=== PATIENT | female | born 1980 | race Hispanic/Latino ===

== ENCOUNTER 2018-02-13 21:45 | Emergency (ER) | payer OTHER ==
[2018-02-13 21:58] VITALS: BP 124/83; O2SAT 100
[2018-02-13] MEDS ORDERED: Iohexol 240 (50 ml) PO STA (22:26)
[2018-02-13] MEDS ORDERED: Sodium Chloride 0.9% 1,000 ML IV STA (22:29)
[2018-02-13 23:13] LABS: BASO # 0.1 K/uL (0.0-0.2); BASO % 0.5 % (0.0-2.0); EOS # 0.7 K/uL (0.0-0.7); EOS % 7.1 % (0.0-4.0); HEMOGLOBIN 10.3 g/dL (12.0-16.0); LYMPH # 1.2 K/uL (1.0-4.3); LYMPH % 12.7 % (20.0-40.0); MEAN CELL VOLUME 84.9 fl (81.0-99.0); MEAN CORPUSCULAR HEMOGLOBIN 29.4 pg (27.0-31.0); MEAN CORPUSCULAR HGB CONC 34.6 g/dL (33.0-37.0); MEAN PLATELET VOLUME 7.1 fl (7.2-11.7); MONO % 10.2 % (0.0-10.0); NEUT # 6.7 K/uL (1.8-7.0); NEUT % 69.5 % (50.0-75.0); RBC 3.51 Mil/uL (3.80-5.20); RED CELL DISTRIBUTION WIDTH 12.9 % (11.5-14.5); WHITE BLOOD COUNT 9.7 K/uL (4.8-10.8)
[2018-02-13] MEDS ORDERED: Iohexol 240 (50 ml) ONE (23:13)
[2018-02-13 23:21] LABS: ALB/GLOB RATIO 1.1 (1.0-2.1); ALBUMIN 3.4 g/dL (3.5-5.0); ALT/SGPT 25 U/L (9-52); AST/SGOT 23 U/L (14-36); BLOOD UREA NITROGEN 3 mg/dl (7-17); CALCIUM 8.1 mg/dL (8.4-10.2); GFR AFRICAN-AMERICAN > 60; GFR NON-AFRICAN AMERICAN > 60; LIPASE 24 U/L (23-300)
[2018-02-13 23:39] LABS: INR 1.4 (0.9-1.2)
[2018-02-13] MEDS ORDERED: Potassium Chloride 20 mEq ER Tab PO STA (23:42)
[2018-02-13] MEDS ORDERED: Potassium Chloride 20 mEq ER Tab PO ONE ×2 (23:54→23:57)
[2018-02-14] MEDS ORDERED: Potassium Chloride 20 mEq ER Tab PO ONE (00:01)
--- NOTE | 2018-02-14 00:04 | ED PDOC ---
HPI: General Adult Time Seen by Provider: 02/13/18 22:02 Chief Complaint (Nursing): Fever Chief Complaint (Provider): Diarrhea History Per: Patient History/Exam Limitations: no limitations Onset/Duration Of Symptoms: Days (x30) Current Symptoms Are (Timing): Still Present Additional History Per: Patient Additional Complaint(s): 37 y/o female presents with a PMHx of chronic celiac disease to the ED complaining of diarrhea, onset one month ago. Patient states of 4-5 episodes a day over the last week associated with lightheadedness. Patient also complains of fever and blister on lip, onset today. Patient additionally reports of blurry vision the last couple weeks. Patient states she went to see an graduate rn on Thursday and was diagnosed with bilateral uveitis and advised for further workup of systemic inflammatory disorder . Patient was seen by Dr. Salcedo on Thursday and prescribed Bentyl with no relief. PMD: Franky Florian Past Medical History Reviewed: Historical Data, Nursing Documentation, Vital Signs Vital Signs: Last Vital Signs Temp 98.0 F 02/14/18 04:32 Pulse 116 H 02/14/18 04:32 Resp 18 02/14/18 04:32 BP 124/83 02/13/18 21:54 Pulse Ox 100 02/14/18 04:32 - Medical History PMH: No Chronic Diseases Other PMH: Celiac Disease - Surgical History Surgical History: No Surg Hx - Family History Family History: States: No Known Family Hx - Social History Current smoker - smoking cessation education provided: No - Home Medications Home Medications: Ambulatory Orders Medication Instructions Recorded Ciprofloxacin [Cipro] 500 mg PO BID 7 Days tab 02/14/18 metroNIDAZOLE [Flagyl] 500 mg PO BID 7 Days tab 02/14/18 - Allergies Allergies/Adverse Reactions: Allergies Allergy/AdvReac Type Severity Reaction Status Date / Time No Known Allergies Allergy Verified 02/13/18 21:53 Review of Systems ROS Statement: Except As Marked, All Systems Reviewed And Found Negative (as per HPI) Constitutional: Positive for: Fever Eyes: Positive for: Vision Change (blurry) ENT: Positive for: Other (blister on lip) Gastrointestinal: Positive for: Diarrhea Neurological: Positive for: Other (lightheadedness) Physical Exam - Reviewed Nursing Documentation Reviewed: Yes Vital Signs Reviewed: Yes - Physical Exam Appears: Positive for: Non-toxic, No Acute Distress (tired appearing ) Head Exam: Positive for: ATRAUMATIC, NORMOCEPHALIC Skin: Positive for: Warm, Dry Eye Exam: Positive for: EOMI, PERRL ENT: Positive for: Pharynx Is (clear), Other (tachy mucous membranes) Neck: Positive for: Painless ROM, Supple Cardiovascular/Chest: Positive for: Regular Rate, Rhythm. Negative for: Murmur Respiratory: Positive for: Normal Breath Sounds. Negative for: Wheezing Gastrointestinal/Abdominal: Positive for: Normal Exam, Soft. Negative for: Tenderness, Mass, Guarding, Rebound Back: Positive for: Normal Inspection. Negative for: L CVA Tenderness, R CVA Tenderness Extremity: Positive for: Normal ROM. Negative for: Deformity Lymphatic: Negative for: Adenopathy Neurologic/Psych: Positive for: Alert. Negative for: Motor/Sensory Deficits - Laboratory Results Result Diagrams: 02/13/18 22:59 02/13/18 22:59 - ECG ECG Rhythm: Positive for: Normal QRS, Normal ST Segment, Sinus Rhythm Rate: 65 O2 Sat by Pulse Oximetry: 100 (RA) Pulse Ox Interpretation: Normal Medical Decision Making Medical Decision Making: Time: 2258 Impression: Diarrhea, fever, and possible inflammatory bowel disease Differentials include but not limited to colitis, Crohn's Disease, dehydration, electrolyte abnormality, and sepsis. Plan: -- Type and Screen -- CT Abd/Pelvis PO & IV Contrast -- CMP -- Lact Acid, Plasma -- Lipase -- Magnesium -- Phosphorus -- ED Urine -- ED Urine Dipstick -- CBC with differentials -- Erythrocyte sedimentation rate -- PTT -- Prothrombin Time -- Sodium Chloride IV 1000 mls/hr -- Iohexol 50 ml PO -- Zofran Inj 4 mg IVP -- Blood Culture -- IV Insertion Time: 2357 Plan: -- Urinalysis -- C Diff Toxin A B -- Urine C & S -- Stool Culture -- OVA and PARASITE -- Potassium Chloride 40 meq PO -- EKG -- Labs demonstrate dehydration, hypocalcemia, and mild anemia. Time: 0000 -- Patient endorsed to Dr. Hendrickson, pending CT scan. Scribe Attestation: Documented by Humberto Jerez acting as a scribe for Dr. Yolie Prado. Provider Scribe Attestation: All medical record entries made by the Scribe were at my direction and personally dictated by me. I have reviewed the chart and agree that the record accurately reflects my personal performance of the history, physical exam, medical decision making, and the department course for this patient. I have also personally directed, reviewed, and agree with the discharge instructions and disposition. Disposition - Clinical Impression Clinical Impression: Colitis - Disposition Disposition: Transfer of Care Disposition Time: 00:30 Condition: STABLE Prescriptions: Ciprofloxacin [Cipro] 500 mg PO BID 7 Days tab metroNIDAZOLE [Flagyl] 500 mg PO BID 7 Days tab
[2018-02-14 00:09] LABS: URINE BACTERIA RARE (<OCC); URINE BILIRUBIN NEGATIVE (NEGATIVE); URINE BLOOD MODERATE (NEGATIVE); URINE CLARITY CLEAR (Clear); URINE COLOR COLORLESS (YELLOW); URINE GLUCOSE (UA) NEG (Normal); URINE LEUKOCYTE ESTERASE NEG Leu/uL (Negative); URINE PROTEIN NEGATIVE (NEGATIVE); URINE UROBILINOGEN 0.2-1.0 mg/dL (0.2-1.0)
[2018-02-14 00:10] VITALS: TEMP 98
[2018-02-14] MEDS ORDERED: Sodium Chloride 0.9% 50 ML IV ONE (01:46)
[2018-02-14] MEDS ORDERED: Iohexol 300 100 ML IJ ONE (01:46)
--- NOTE | 2018-02-14 03:37 | ED PDOC ---
- Laboratory Results Result Diagrams: 02/13/18 22:59 02/13/18 22:59 - ECG O2 Sat by Pulse Oximetry: 100 (RA) Pulse Ox Interpretation: Normal Medical Decision Making Medical Decision Making: Time: 0000 -- Patient endorsed to me by Dr. Prado, pending CT scan. Time: 326 CT ABD/PELVIS RESULTS FINDINGS: Lower thorax: No acute findings. ABDOMEN: Liver: A couple small nonspecific hypodense liver lesion spell possible small cysts or hemangiomas Gallbladder and bile ducts: Normal. No calcified stones. No ductal dilation. Pancreas: Normal. No ductal dilation. Spleen: Normal. No splenomegaly. Adrenals: Normal. No mass. Kidneys and ureters: Normal. No hydronephrosis. Stomach and bowel: Moderate colonic wall thickening, predominantly in the transverse colon. No obstruction. Appendix: No evidence of appendicitis. PELVIS: Bladder: Unremarkable as visualized. Reproductive: Unremarkable as visualized. ABDOMEN and PELVIS: Intraperitoneal space: Normal. No free air. No significant fluid collection. Bones/joints: No acute fracture. No dislocation. Soft tissues: Unremarkable. Vasculature: Normal. No abdominal aortic aneurysm. Lymph nodes: Normal. No enlarged lymph nodes. IMPRESSION: Moderate colonic wall thickening, predominantly in the transverse colon. Consistent with infectious versus inflammatory colitis Thank you for allowing us to participate in the care of your patient. Dictated and Authenticated by: Moshe King MD 02/14/2018 3:27 AM Eastern Time ([place] & [place]) Patient re-evaluated at bedside, states no abdominal pain at this time, states she feels well. Gave results of CT to patient, advised her to see Dr. Salcedo on Thursday for plans to have colonoscopy. Patient tolerating PO, well appearing, normal vitals. Will discharge home. Scribe Attestation: Documented by Humberto Jerez acting as a scribe for Dr. Jam Hendrickson MD. Provider Scribe Attestation: All medical record entries made by the Scribe were at my direction and personally dictated by me. I have reviewed the chart and agree that the record accurately reflects my personal performance of the history, physical exam, medical decision making, and the department course for this patient. I have also personally directed, reviewed, and agree with the discharge instructions and disposition. Disposition - Clinical Impression Clinical Impression: Colitis - POA Present On Arrival: None - Disposition Referrals: Moshe Salcedo MD, PhD [Staff Provider] - Disposition: Routine/Home Disposition Time: 04:00 Condition: IMPROVED Prescriptions: Ciprofloxacin [Cipro] 500 mg PO BID 7 Days tab metroNIDAZOLE [Flagyl] 500 mg PO BID 7 Days tab Instructions: Inflammatory Bowel Disease (DC) Forms: [facility] (Malaysian)
[2018-02-14 04:32] VITALS: RESP 18
--- NOTE | 2018-02-14 13:51 | CARD ---
APPROVED REPORT Date of service: 02/14/2018 EKG Measurement Heart [id number] MD [id number] <Conclusion> Normal sinus rhythm Normal ECG
--- NOTE | 2018-02-14 14:20 | CT ---
Date of service: 02/14/2018 PROCEDURE: CT Abdomen and Pelvis with contrast HISTORY: diarrhea weight loss fever COMPARISON: None. TECHNIQUE: Contrast dose: 90 mL Omnipaque 300 Radiation dose: Total exam DLP = 238.27 mGy-cm. This CT exam was performed using one or more of the following dose reduction techniques: Automated exposure control, adjustment of the mA and/or kV according to patient size, and/or use of iterative reconstruction technique. FINDINGS: LOWER THORAX: No infiltrate. 5 mm pleural-based nodule in the right lower lobe for which no follow-up is advised as per Fleischner society criteria. LIVER: Few small nonspecific rounded low-attenuation lesions in the right and left hepatic lobes, 6 mm or less. Smooth contour. No biliary dilatation. GALLBLADDER AND BILE DUCTS: Unremarkable. PANCREAS: Unremarkable. No gross lesion or ductal dilatation. SPLEEN: Unremarkable. ADRENALS: Unremarkable. No mass. KIDNEYS AND URETERS: Unremarkable. No hydronephrosis. No solid mass. VASCULATURE: Unremarkable. No aortic aneurysm. BOWEL: Mural thickening of the transverse, descending and rectosigmoid colon, consistent with nonspecific colitis. Consider infectious etiology. No bowel obstruction. APPENDIX: Not identified. No secondary findings to suggest appendicitis peer PERITONEUM: Unremarkable. No free fluid. No free air. LYMPH NODES: Unremarkable. No enlarged lymph nodes. BLADDER: Normal REPRODUCTIVE: Unremarkable uterus BONES: No acute fracture. OTHER FINDINGS: None. IMPRESSION: Findings consistent with nonspecific colitis. Consider infectious etiology. Minor findings as above. The preliminary findings for this examination were reported by [employer] at 3:27 a.m. on 02/14/2018. There is concurrence of this report with the preliminary findings.
[2018-02-14 15:54] VITALS: PULSE 65
== END 2018-02-14 04:53 | disposition home or self-care (01) ==
LOC: H.ER 21:45
DX: K52.9 Noninfective gastroenteritis and colitis, unspecified (principal); K90.0 Celiac disease
CPT/HCPCS: 74177; 80053; 81003; 81025; 83605; 83690; 83735; 84100; 85025; 85610; 85651; 85730; 86850; 86900; 87040; 87045; 87086; 87177; 87209; 87230; 93005; 96374; 99283; J2405; J7030; Q9966; Q9967